=== PATIENT | female | born 1990 | race Caucasian/White ===

== ENCOUNTER 2019-05-10 19:29 | Inpatient (IN) | payer SELFPAY ==
[~2019-05-10] VITALS: Ht 160 cm; Wt 87.1 kg
[2019-05-10] MEDS ORDERED: SODIUM CHLORIDE 0.9% 1,000 ML IV ONE (20:05)
[2019-05-10 20:40] LABS: CLARITY URINE CLEAR (CLEAR); COLOR URINE YELLOW (YELLOW); KETONES URINE NEGATIVE (NEGATIVE); LEUKOCYTE ESTERASE URINE NEGATIVE (NEGATIVE); NITRITE URINE NEGATIVE (NEGATIVE); OCCULT BLOOD URINE NEGATIVE (NEGATIVE); PH URINE 7.5 (4.5-8.0); PROTEIN URINE NEGATIVE (NEGATIVE); SPECIFIC GRAVITY URINE 1.014 (1.005-1.030)
[2019-05-10 20:51] LABS: *AMPHETAMINES SCREEN URINE NEGATIVE (NEGATIVE); *BARBITURATES SCREEN URINE NEGATIVE (NEGATIVE); *BENZODIAZEPINES SCREEN URINE NEGATIVE (NEGATIVE); *COCAINE SCREEN URINE NEGATIVE (NEGATIVE); CANNABINOID URINE SCREEN NEGATIVE (NEGATIVE); METHADONE URINE SCREEN NEGATIVE (NEGATIVE); OPIATES URINE SCREEN NEGATIVE (NEGATIVE); PHENCYCLIDINE URINE SCREEN NEGATIVE (NEGATIVE)
[2019-05-10 21:06] LABS: BASOPHILS % 0.6 % (0.0-2.0); EOSINOPHILS % 0.7 % (0.0-5.0); HEMATOCRIT. 39.2 % (36.0-48.0); HEMOGLOBIN. 13.2 g/dL (12.0-16.0); LYMPHOCYTES % 13.3 % (20.0-50.0); MEAN CORPUSCULAR HEMOGLOBIN 28.3 pg (28.0-32.0); MEAN CORPUSCULAR VOLUME 84.1 fL (81.0-99.0); MEAN PLATELET VOLUME 7.7 fl (7.4-10.4); MONOCYTES % 6.6 % (2.0-8.0); NEUTROPHILS % 78.8 % (40.0-76.0); PLATELET 320 x1000/uL (130-400); RED BLOOD CELL COUNT 4.66 mill/uL (4.2-5.4); RED CELL DISTRIBUTION WIDTH 13.8 % (11.6-14.6)
[2019-05-10 21:13] LABS: CHLORIDE 107 mEq/L (98-107)
[2019-05-10 21:14] LABS: PARTIAL THROMBOPLASTIN TIME 27.3 sec (23.4-31.0); PROTHROMBIN TIME 10.3 sec (9.6-11.0)
[2019-05-10 21:15] LABS: HCG SCREEN NEGATIVE
[2019-05-10 21:17] LABS: ETHANOL BLOOD < 10 mg/dL
[2019-05-10] MEDS ORDERED: ACETAMINOPHEN 325MG TABLET PO ONE (22:30)
[2019-05-11] MEDS ORDERED: IOHEXOL-350 100 ML BOTTLE ONE (00:12)
[2019-05-11] MEDS ORDERED: CLONIDINE 0.1MG TABLET PO PRN (00:15)
[2019-05-11] MEDS ORDERED: IPRATROPIUM/ALBUTEROL 0.5-3(2.5)MG/3ML NEB INH PRN (00:15)
[2019-05-11] MEDS ORDERED: LORAZEPAM 2MG/ML CPJ IV PRN (00:15)
[2019-05-11] MEDS ORDERED: ONDANSETRON HCL 4MG/2ML INJ IV PRN (00:15)
[2019-05-11] MEDS ORDERED: ACETAMINOPHEN 325MG TABLET PO PRN (00:15)
[2019-05-11 06:00] VITALS: BP 110/69
[2019-05-11 08:00] VITALS: BP 110/66
[2019-05-11] MEDS: ENOXAPARIN 40MG/0.4ML SYR SUBCUT SCH (08:36)
[2019-05-11] MEDS: ASPIRIN 81MG EC TABLET PO SCH (08:36)
[2019-05-11 10:02] LABS: CREATINE KINASE 160 IU/L (26-192)
[2019-05-11 10:03] LABS: CREATINE KINASE MB FRACTION 1.3 ng/mL (0.5-3.6)
[2019-05-11 11:29] LABS: BASOPHILS % 0.7 % (0.0-2.0); EOSINOPHILS % 0.9 % (0.0-5.0); HEMOGLOBIN. 13.3 g/dL (12.0-16.0); LYMPHOCYTES % 20.1 % (20.0-50.0); MEAN CORPUSCULAR HEMOGLOBIN 28.6 pg (28.0-32.0); MEAN CORPUSCULAR VOLUME 83.9 fL (81.0-99.0); MEAN PLATELET VOLUME 8.3 fl (7.4-10.4); MONOCYTES % 8.2 % (2.0-8.0); NEUTROPHILS % 70.1 % (40.0-76.0); PLATELET 296 x1000/uL (130-400); RED BLOOD CELL COUNT 4.65 mill/uL (4.2-5.4); RED CELL DISTRIBUTION WIDTH 13.9 % (11.6-14.6)
[2019-05-11 11:32] LABS: CHLORIDE 106 mEq/L (98-107)
[2019-05-11 12:00] VITALS: BP 112/72
[2019-05-11] MEDS: SODIUM CHLORIDE 0.9% 1,000 ML IV SCH ×2 (13:55→18:16)
[2019-05-11] MEDS: HYDROCODONE/ACETAMINOPHEN 5/325MG TABLET PO PRN ×2 (14:50→21:00)
[2019-05-11 17:00] VITALS: BP 117/71
[2019-05-11 17:39] LABS: CREATINE KINASE 153 IU/L (26-192)
[2019-05-11 17:40] LABS: CREATINE KINASE MB FRACTION < 1.0 ng/mL (0.5-3.6)
[2019-05-11 20:00] VITALS: BP 112/72
[2019-05-12] VITALS: BP 110/59
[2019-05-12 04:00] VITALS: BP 110/69
[2019-05-12] MEDS: SODIUM CHLORIDE 0.9% 1,000 ML IV SCH (06:36)
[2019-05-12 06:38] LABS: CHLORIDE 108 mEq/L (98-107)
[2019-05-12 06:56] LABS: BASOPHILS % 0.2 % (0.0-2.0); EOSINOPHILS % 1.4 % (0.0-5.0); HEMATOCRIT. 37.9 % (36.0-48.0); HEMOGLOBIN. 12.9 g/dL (12.0-16.0); LYMPHOCYTES % 28.4 % (20.0-50.0); MEAN CORPUSCULAR HEMOGLOBIN 28.5 pg (28.0-32.0); MONOCYTES % 8.2 % (2.0-8.0); NEUTROPHILS % 61.8 % (40.0-76.0); PLATELET 291 x1000/uL (130-400); RED BLOOD CELL COUNT 4.52 mill/uL (4.2-5.4)
[2019-05-12 08:00] VITALS: BP 133/80
[2019-05-12] MEDS: ASPIRIN 81MG EC TABLET PO SCH (09:42)
[2019-05-12] MEDS: ENOXAPARIN 40MG/0.4ML SYR SUBCUT SCH (09:43)
[2019-05-12 14:42] VITALS: BP_SYST 117; BP_SYST 133; BP_DIAS 77; BP_DIAS 80
[2019-05-12 16:00] VITALS: BP 117/77
== END 2019-05-12 17:22 | disposition home or self-care (01) | DRG 201 ==
LOC: ER 19:29 → 8WST 23:43 → ENRESERV 05-11 04:34
PROVIDERS: ADMIT Internal Medicine Nephrology; ATTEND Internal Medicine Nephrology
DX: I49.9 Cardiac arrhythmia, unspecified (principal); E66.01 Morbid (severe) obesity due to excess calories; S06.0X9A Concussion with loss of consciousness of unspecified duration, initial encounter; G90.8 Other disorders of autonomic nervous system; M94.0 Chondrocostal junction syndrome [Tietze]; R74.0 Nonspecific elevation of levels of transaminase and lactic acid dehydrogenase [LDH]; X58.XXXA Exposure to other specified factors, initial encounter; Y93.89 Activity, other specified; Y92.89 Other specified places as the place of occurrence of the external cause; Y99.8 Other external cause status; Z68.34 Body mass index [BMI] 34.0-34.9, adult; Z71.3 Dietary counseling and surveillance; Z98.891 History of uterine scar from previous surgery
CPT/HCPCS: 36415; 70551; 71045; 71275; 80048; 80305; 80307; 80320; 80329; 82550; 82553; 83880; 84484; 84703; 93005; 93306; 96360; 97162; 99285; J1650; J2405; J7030; Q9967; G0480